=== PATIENT | female | born 1985 | race Two or more races ===

== ENCOUNTER → 2017-06-01 | Outpatient (CLI) | payer OTHER ==
--- NOTE | 2017-06-01 15:48 | RAD ---
Pelvic ultrasound, 06/01/2017: History: Pelvic pain Transabdominal and transvaginal scans were obtained. The uterus is within normal limits in size. A normal 6 mm central uterine echo complex is evident. Tiny nabothian cysts are present in the cervical region. There is a 2.6 cm simple appearing cyst in the right ovary. Tiny follicular cysts are present in the left ovary. The adnexal regions are otherwise unremarkable. A trace amount of fluid is present in the cul-de-sac. This amount of fluid can be on a physiologic basis. IMPRESSION: 1. Small right ovarian cyst. 2. Minimal free fluid in the cul-de-sac.
== END | disposition home or self-care (01) ==
LOC: US 13:38
PROVIDERS: ATTEND Nurse Practitioner Family
DX: N83.291 Other ovarian cyst, right side (principal); N83.02 Follicular cyst of left ovary; N88.8 Other specified noninflammatory disorders of cervix uteri
CPT/HCPCS: 76830; 76856